=== PATIENT | female | born 1985 | race Caucasian/White ===

== ENCOUNTER → 2017-01-03 | Outpatient (CLI) | payer BC ==
[~2017-01-03] MED LIST: LIDOCAINE 1% 300 MG/30 ML SDV ONE
== END ==
LOC: FIMAGING 14:35
PROVIDERS: ATTEND Otolaryngology
PROC: 0C983ZX Drainage of Right Parotid Gland, Percutaneous Approach, Diagnostic (ICD-10-PCS; principal; 2017-01-03)
DX: D11.7 Benign neoplasm of other major salivary glands (principal)